=== PATIENT | female | born 1995 | race Caucasian/White ===

== ENCOUNTER → 2018-08-13 13:48 | Outpatient (CLI) | payer OTHER, SELFPAY ==
[2018-08-13 15:20] LABS: Absolute Neutrophil Count 3.8 X10^3/uL (2.0-7.7); Basophil# 0.03 X10^3/uL; Basophil% 0.4 % (0-1); Eosinophil# 0.05 X10^3/uL; Eosinophils% 0.7 % (0-5); Hematocrit 37.5 % (37-47); Hemoglobin 12.4 g/dl (12.0-15.0); Lymphocyte % 37.2 % (19-41); Mean Corp Hgb Conc 33.1 g/gl (32-36); Mean Corpuscular Hgb 29.9 pg (27.0-32.0); Mean Corpuscular Volume 90.4 fL (81-99); Mean Platelet Vol. 11.2 fl (6.2-12.0); Monocyte# 0.39 X10^3/uL; Monocyte% 5.8 % (0-10); Neutrophil # 3.75 X10^3/uL (2.7-7.7); Neutrophil % 55.9 % (47-70); Platelet Count 294 K/mm3 (150-450); RBC Distribution Width CV 12.9 % (11.6-14.6); Red Blood Count 4.15 M/mm3 (4.2-5.4); White Blood Count 6.7 K/mm3 (4.4-11.0)
[2018-08-13 15:23] LABS: POSITIVE COUNT NO; POSITIVE DIFFERENTIAL NO; POSITIVE MORPHOLOGY NO
[2018-08-13 15:34] LABS: T3 Total - Triiodothyronine 1.39 ng/mL (0.6-1.81)
[2018-08-13 15:59] LABS: ALB/GLOB Ratio 0.9 RATIO (0.9-2.4); AST(SGOT) 14 U/L (15-37); Alanine Aminotransfer ALT/SGPT 31 U/L (13-56); Albumin, Serum 3.7 g/dL (3.2-5.0); Alkaline Phosphatase 35 U/L (45-117); Anion Gap 9 (5-15); BUN 8 mg/dL (7-18); BUN/Creat Ratio 11.3 RATIO (10-20); CRP 4.71 mg/L (0.0-3.0); Calcium,Total 8.9 mg/dL (8.5-10.1); Chloride 106 mmol/L (98-107); Creatinine, Serum 0.71 mg/dL (0.55-1.02); EST Glomerular Filtration Rate 107 mL/min (>60); Est Glom Filt Rate - Afr Amer 130 mL/min (>60); Globulin 4.1 g/dL (2.2-4.2); Glucose 64 mg/dL (74-106); Potassium 3.8 mmol/L (3.5-5.1); Protein, Total 7.8 g/dL (6.4-8.2); Rheumatoid Factor < 10.0 IU/mL (<15); Sodium Level 141 mmol/L (136-145); T4 Free Direct 1.11 ng/dL (0.76-1.46); Thyroid Stim Hormone (TSH) 1.22 uIU/mL (0.358-3.74)
[2018-08-13 16:00] LABS: Erythrocyte Sedimentation Rate 12 mm/hr (0-20)
[2018-08-15 14:41] LABS: Anti-Centromere B Ab <0.2 AI (0.0-0.9); Anti-Chromatin <0.2 AI (0.0-0.9); Anti-Jo <0.2 AI (0.0-0.9); Anti-Scleroderma-70 AB <0.2 AI (0.0-0.9); Anti-ribosomal P Antibodies <0.2 AI (0.0-0.9); RNP Ab <0.2 AI (0.0-0.9); SJOGREN'S Anti-SS-A test < 0.2 AI (0.0-0.9); SJOGREN'S Anti-SS-B test < 0.2 AI (0.0-0.9); Smith Ab <0.2 AI (0.0-0.9); Smith/RNP Ab <0.2 AI (0.0-0.9)
[2018-08-15 14:45] LABS: Anti-dsDNA Ab 1 IU/mL (0-9)
[2018-08-16 03:08] LABS: Thyroid Peroxidase AB 10 IU/mL (0-34)
[2018-08-17 11:32] LABS: CCP IgG Antibodies 6 units (0-19); Thyroglobulin Antibody < 1.0 IU/mL (0.0-0.9)
== END ==
PROVIDERS: Family Provider Family Medicine; PCP Family Medicine; Visit Provider Family Medicine
DX: M25.50 Pain in unspecified joint (principal); M79.10 Myalgia, unspecified site; R53.83 Other fatigue; E01.0 Iodine-deficiency related diffuse (endemic) goiter
CPT/HCPCS: 36415; 80053; 84439; 84443; 84480; 85025; 85652; 86038; 86140; 86200; 86225; 86235; 86376; 86431; 86800

== ENCOUNTER → 2018-12-10 09:23 | Outpatient (CLI) | payer BC, SELFPAY ==
[2018-12-10 12:47] LABS: Absolute Lymphocyte Count 2.06 X10^3/ul (0.83-4.51); Absolute Neutrophil Count 3.7 X10^3/uL (2.0-7.7); Basophil# 0.01 X10^3/uL; Basophil% 0.2 % (0-1); Eosinophil# 0.19 X10^3/uL; Hematocrit 38.1 % (37-47); Hemoglobin 12.1 g/dl (12.0-15.0); Lymphocyte # 2.06 X10^3/ul (4.0); Lymphocyte % 32.5 % (19-41); Mean Corp Hgb Conc 31.8 g/gl (32-36); Mean Corpuscular Hgb 29.1 pg (27.0-32.0); Mean Corpuscular Volume 91.6 fL (81-99); Mean Platelet Vol. 11.4 fl (6.2-12.0); Monocyte# 0.35 X10^3/uL; Monocyte% 5.5 % (0-10); Neutrophil # 3.71 X10^3/uL (2.7-7.7); Neutrophil % 58.6 % (47-70); Platelet Count 318 K/mm3 (150-450); RBC Distribution Width CV 13.9 % (11.6-14.6); RBC Distribution Width SD 45.8 fl (35.1-43.9); Red Blood Count 4.16 M/mm3 (4.2-5.4); White Blood Count 6.3 K/mm3 (4.4-11.0)
[2018-12-10 13:10] LABS: Free T3 2.7 pg/mL (2.18-3.98); POSITIVE COUNT NO; POSITIVE DIFFERENTIAL NO; POSITIVE MORPHOLOGY NO; T4 Free Direct 1.06 ng/dL (0.76-1.46); Thyroid Stim Hormone (TSH) 1.24 uIU/mL (0.358-3.74)
[2018-12-10 13:47] LABS: HIV - WCH Non-Reactive (Nonreactive)
[2018-12-13 12:27] LABS: Lyme IgG P18 Ab Absent (.); Lyme IgG P23 Ab Absent (.); Lyme IgG P28 Ab Absent (.); Lyme IgG P30 Ab Absent (.); Lyme IgG P39 Ab Absent (.); Lyme IgG P41 Ab Present (.); Lyme IgG P45 Ab Absent (.); Lyme IgG P58 Ab Absent (.); Lyme IgG P66 Ab Absent (.); Lyme IgG P93 Ab Absent (.); Lyme IgM P23 Ab Absent (.); Lyme IgM P39 Ab Absent (.); Lyme IgM P41 Ab Absent (.)
[2018-12-13 12:48] LABS: Lyme IgG WB Interpretation Negative (.); Lyme IgM WB Interpretation Negative (.)
[2018-12-14 03:11] LABS: Rapid Plasmin Reagin (RPR) NONREACTIVE (NONREACTIVE)
== END ==
PROVIDERS: Family Provider Family Medicine; PCP Family Medicine; Visit Provider Family Medicine
DX: E01.0 Iodine-deficiency related diffuse (endemic) goiter (principal); M06.4 Inflammatory polyarthropathy; Z51.81 Encounter for therapeutic drug level monitoring; Z20.2 Contact with and (suspected) exposure to infections with a predominantly sexual mode of transmission
CPT/HCPCS: 36415; 84439; 84443; 84481; 85025; 86140; 86592; 86617; 86703

== ENCOUNTER → 2022-05-29 | Outpatient (CLI) | payer BC, SELFPAY ==
[2022-05-29 15:50] LABS: Bacteria 0 SEEN /hpf (None Seen); Mucous, Urine 0 SEEN /hpf (<or=2+)
[2022-05-29 15:56] LABS: Color, Urine Yellow (Yellow); Glucose, Dipstick Normal (Normal); Ketone-Dipstick Negative (Negative); Leukocyte Esterase-Dipstick Negative /ul (Negative); Nitrite-Dipstick Negative (Negative); Occult Blood-Urine 25 /ul (Negative); Protein-Dipstick Negative (Negative); Specific Gravity, Urine 1.015 (1.002-1.030); Urine Bilirubin Dipstick Negative (Negative); Urine Clarity Clear (Clear); Urine Urobilinogen Normal (Normal)
[2022-05-29 16:25] LABS: Red Blood Cells-Urine 0-5 SEEN /hpf (0-5); Squamous Epithelial Cells - UA 0-5 SEEN /hpf (5-10); White Blood Cells 0-5 SEEN /hpf (0-5); Yeast-Urine RARE /hpf (None Seen)
== END | disposition home or self-care (01) ==
PROVIDERS: PCP Family Medicine; Visit Provider Physician Assistant Medical
DX: N39.0 Urinary tract infection, site not specified (principal)
CPT/HCPCS: 81001; 87086; 87088

== ENCOUNTER 2025-01-18 20:33 | Inpatient (IN) | payer OTHER, SELFPAY ==
[2025-01-18 19:36] VITALS: PULSE 86; O2SAT 95
[2025-01-18 19:37] VITALS: BP 136/83; PULSE 86; RESP 20; TEMP 37.6
[2025-01-18 19:49] VITALS: BMI 40.4
[2025-01-18 20:25] LABS: ROM Internal Control Test YES-OK TO RESULT pt. (Internal QC)
[2025-01-18 20:26] LABS: ROM Patient Test POSITIVE (Negative); Record Kit Lot#, ROM+ K3294
[2025-01-18] MEDS: Lactated Ringers 1,000 ML 50 ML IV (21:00)
[2025-01-18] MEDS: Penicillin G Pot 5,000,000 UNITS in 0.9% Normal Saline (100mL MB+) 100 ML 150 UNITS IV (21:01)
[2025-01-18 21:22] LABS: Absolute Lymphocyte Count 1.73 X10^3/uL (0.83-4.51); Absolute Neutrophil Count 7.6 X10^3/uL (2.0-7.7); Basophil# 0.03 X10^3/uL; Basophil% 0.3 % (0-1); Eosinophil# 0.05 X10^3/uL; Eosinophils% 0.5 % (0-5); Hematocrit 39.2 % (37-47); Lymphocyte # 1.73 X10^3/ul (0.83-4.51); Mean Corp Hgb Conc 33.2 g/dL (32-36); Mean Corpuscular Volume 90.5 fL (81-99); Mean Platelet Vol. 11.4 fl (6.2-12.0); Monocyte# 0.73 X10^3/uL; Monocyte% 7.2 % (0-10); NRBC Flagged by Analyzer 0 % (0-5); Neutrophil # 7.57 X10^3/uL (2.7-7.7); Neutrophil % 74.2 % (47-70); Platelet Count 259 K/mm3 (150-450); RBC Distribution Width CV 15.6 % (11.6-14.6); RBC Distribution Width SD 51.4 fl (35.1-43.9); Red Blood Count 4.33 M/mm3 (4.2-5.4); White Blood Count 10.2 K/mm3 (4.4-11.0)
--- NOTE | 2025-01-18 21:34 | PCM.HP.OB ---
HPI - General General Date of Admission: 01/18/25 HPI Narrative EDI GARCIA, is a 29 F at 35.3 weeks who presents with leaking of fluid. PFSH PFSH Medical History (Updated 01/18/25 @ 22:14 by Imani Restrepo CNM) Superficial varicosities Depression Migraines Rheumatoid arthritis Chronic headaches Home Medications ?Medication ?Instructions ?Recorded ?Last Taken ?Type duloxetine 20 mg capsule,delayed ea PO 05/29/22 Unknown History release Held on 01/18/25. Instructions: pt stopped taking with hydroxychloroquine 200 mg tablet 200 mg PO QHS 05/29/22 01/17/25 21:00 History prednisone 5 mg tablet 5 mg PO PRN PRN rheumatoid 05/29/22 Unknown History arthritis sulfasalazine 500 mg tablet 1 g PO QHS 05/29/22 01/17/25 21:00 History aspirin 81 mg capsule 81 mg PO QHS 01/18/25 01/17/25 21:00 History vit no.95-ferrous 1 tab PO QHS 01/18/25 01/17/25 21:00 History fumarate 28 mg-folic acid 800 mcg tablet () Allergy/AdvReac Type Severity Reaction Status Date / Time No Known Allergies Allergy Verified 01/18/25 19:41 Surgical History (Updated 01/18/25 @ 21:36 by Marta Galan) History of placement of ear tubes History of tonsillectomy Social History Smoking Status: Never smoker History Elective abortions Hx Para 0 Spontaneous abortions Hx # Term Pregnancies Ectopic pregnancies Hx # Pregnancies Multiple births # of living children NST FHR Rate Baby A Baseline: 140 Variability:: Moderate Accelerations:: 15 x 15 Decelerations:: None NST Reactive:: Yes FHR Category:: Category I Uterine Activity:: TOCO reading every 2-3 minutes ROS Eyes Eyes: Denies blurry vision, change in vision or spots in vision ENT HEENT: Denies dizziness or headache(s) Cardiovascular Cardiovascular: Denies abdominal pain, chest pain or dyspnea Respiratory/Chest Respiratory/Chest: Denies cough, dyspnea, shortness of breath at rest or shortness of breath with exertion Gastrointestinal Gastrointestinal: Denies abdominal pain, diarrhea or vomiting Genitourinary Genitourinary: Denies change in urinary stream, difficulty urinating or dysuria Musculoskeletal Musculoskeletal: Reports none Integumentary Integumentary: Denies rash Neurologic Neurologic: Denies dizziness, headache(s), memory loss or weakness Psychiatric Psychiatric: Reports none Vital Signs Vital Signs Vital Signs: 01/18/25 19:36 01/18/25 19:36 01/18/25 19:37 Temperature Temperature Source Pulse Rate 86 Respiratory Rate Blood Pressure 136/83 H BP Systolic 136 BP Diastolic 83 Pulse Ox 95 01/18/25 19:37 01/18/25 19:37 01/18/25 19:37 Temperature Temperature Source Temporal Pulse Rate 86 Respiratory Rate 20 H Blood Pressure BP Systolic BP Diastolic Pulse Ox 01/18/25 19:37 Temperature 99.6 F H Temperature Source Pulse Rate Respiratory Rate Blood Pressure BP Systolic BP Diastolic Pulse Ox Weight Weight: 206 lb 12.8 oz Body Mass Index (BMI) 40.4 Physical Exam Const alert, oriented x3 and no apparent distress General Appearance: cooperative Orientation / Consciousness: awake Exam Limitations: no limitations HEENT normocephalic Head and Scalp: normal to inspection Eyes General Eye: normal appearance of both eyes Neck full ROM and no lymphadenopathy Lymph Lymphatic: no lymphadenopathy noted Chest inspection of chest normal Resp normal respiratory effort, normal air movement and clear to auscultation bilaterally Effort and Inspection: able to speak in complete sentences and symmetric chest movement Cardio regular rate and regular rhythm GI normal to inspection, nondistended, normoactive bowel sounds Manual OB Exam: presentation cephalic Back/Spine normal ROM Extremity full ROM and no calf tenderness Skin no rashes or lesions noted General Skin Exam: no breakdown Neuro oriented x3 and CN's II-XII intact bilaterally Psych mental status grossly normal and thought process normal Labs Labs Labs: Blood Type A POSITIVE Antibody Screen NEGATIVE Hct 39.2 % (37-47) Hgb 13.0 g/dL (12.0-15.0) Syphilis Total Ab Nonreactive (Nonreactive) Hep Bs Antigen Negative (Negative) HIV 1&2 Antibody Non-Reactive (Nonreactive) Assessment & Plan (1) Rheumatoid arthritis: (2) 35 weeks gestation of : (3) Premature rupture of membranes: (4) History of depression: (5) Obesity affecting : (6) GBS screening not performed: PLAN: Plan ROM plus- POSITIVE Admit to L&D Routine labs CE /-1 Give Celestone 12 mg IM x1 now Start PCN 5 million units IV now and run PCN 3 million units IV every 4 hours until delivery Epidural when indicated Loss Prevention Auditor notified of admission and plan of care Dr. Beaver notified of admission and plan of care and is collaborating physician
[2025-01-18] MEDS: Betamethasone/Betamethasone 30 MG/5 ML Vial 12 MG IM (21:47)
[2025-01-18 21:56] VITALS: PULSE 73; O2SAT 96
[2025-01-18 21:57] VITALS: BP 146/90; PULSE 80; RESP 18; TEMP 36.6
[2025-01-18 22:05] LABS: Syphilis Antibodies Nonreactive (Nonreactive)
[2025-01-18 22:34] LABS: Uric Acid 4.1 mg/dL (2.6-6.0)
[2025-01-18 22:58] LABS: AST(SGOT) 25 U/L (<=31); Alanine Aminotransfer ALT/SGPT 13 U/L (<=34); Creatinine, Serum 0.45 mg/dL (0.70-1.20); EST Glomerular Filtration Rate 132 (>60); Estimated Creatinine Clearance 187.06 ml/min (50-250)
[2025-01-18] MEDS: Oxytocin 10 UNITS/ML Vial IM (23:42)
[2025-01-18] MEDS: Oxytocin 15 Units/NS 250ml 15 UNITS/250 ML IV.SOLN 83 UNITS IV (23:47)
[2025-01-19] VITALS (15 sets, daily range): BP systolic 95–146; BP diastolic 51–92; PULSE 73–115; RESP 16–22; TEMP 36.1–37.3; O2SAT 95–100
[2025-01-19] MEDS: HYDROmorphone 0.5 MG/0.5 ML SYRINGE IV (00:09)
--- NOTE | 2025-01-19 00:28 | EX.PCM.OBVAG ---
Assessment & Plan (1) (spontaneous vaginal delivery): (2) Avulsion of umbilical cord: (3) Retained placenta or membranes: (4) 35 weeks gestation of : (5) Rheumatoid arthritis: (6) Premature rupture of membranes: (7) History of depression: Vaginal Delivery Maternal Presentation Maternal Presentation: Other ( at 35.6 weeks gestation with PPROM) Vaginal Delivery Information Procedure Performed: Spontaneous Vaginal Delivery Pre-Procedure Diagnosis: PPROM, Spontaneous onset of labor Post-Procedure Diagnosis: , Live male infant Type of anesthesia: None Estimated Blood Loss: 250 Time of Delivery: 23:39 Findings Description of procedure: Patient quickly progressed to complete dilation. [place] Weapon System Operator and RT to room for delivery. With good maternal effort, head delivered followed by anterior shoulder and remainder of infant body without any force, delay, or traction. Loose nuchal cord reduced easily. Vigorous male was delivered atraumatically and placed on maternal abdomen. Pitocin IM & IV started for active management of the third stage of labor. 3 vessel cord clamped and cut after minimal delay and infant placed under warmer by nursing. Short and thin cord noted. I placed minimal pressure on cord to assess if placenta was delivering and the cord avulsed. Manually attempted to feel for placenta which was still inside uterus. Several large clots removed. At this time had nursing call Dr. Beaver to come for evaluation. skin to skin with patient. See operative/procedure note. Presentation: Vertex Amniotic Membrane Rupture Type: Spontaneous Amniotic Fluid Description: Clear and Bloody Placental Delivery Description: Retained Placenta Disposition: Sent to Pathology Specimen collected: No Cord Vessel Description: 3 Vessels Cord Entanglement: Around neck x 1, loose Nuchal Cord Compression: Without compression A Gender: Male (1 minute): 8 (5 minute): 9 Delayed Cord Clamping: Yes Playground Equipment Erector lace inspector: No Post Vaginal Deli Medications given after delivery: IV Pitocin and IM Pitocin Episiotomy Description: None Laceration: None Complication Complications: No
[2025-01-19] MEDS: Cefazolin 2 GM in Syringe IV (00:55)
[2025-01-19] MEDS: Methylergonovine 0.2 MG/ML Ampul IM (02:43)
--- NOTE | 2025-01-19 02:43 | PLAC_PTH ---
PATIENT: EDI GARCIA LOC: [facility] U#:[id number] AGE/SX: 29/F ROOM: WP007 RE01/18/[address]: Imani Restrepo CNM : 1995 BED: 1 DIS: 01/19/2025 SPEC #: [id number] RECD: 01/19/25 04:26 STATUS: ROBIN MAURA #: [id number] MOUSTAPHA: 01/19/25 02:[address]: Tiffany Beaver DEPT: SURGICAL PATHOLOGY RECD BY: Keron Alfaro ENTERED: 01/20/25 08:21 SP TYPE: PLACENTA OTHR DR: MARK Vanessa Dr., DO Tissues: A - Placenta, NOS Procedures: Surgery Specimen Level V HEADER OPERATION: Vaginal delivery PRE-OP DIAGNOSIS: TISSUE SUBMITTED: A- Placenta MICROSCOPIC DIAGNOSIS A. Placenta, , spontaneous vaginal delivery: * 3rd trimester chen placenta, fragmented (358 grams). * 3 vessel umbilical cord without inflammation. * Chorioamnionic membranes with focal edema of the amnion, without inflammation. MICROSCOPIC DESCRIPTION Slides are reviewed. GROSS DESCRIPTION A. Received in formalin in a container labeled with the patient's name, date of , and with no further designation is a previously disrupted chen placenta received in multiple fragments measuring 17.5 x 17.5 x 5.0 cm in aggregate. The placental fragments weigh 358 g together. The detached white-avila umbilical cord exhibits 3 vessels and is 37.0 cm in length by 1.4 cm in diameter. A minimal amount of avila-pink and partially stripped membranes are identified. The attachment point of the membranes and umbilical cord is unable to be determined. A small portion of intact surface is discovered with pale mendez, prominent vasculature. The opposing maternal surface is previously disrupted with a moderate amount of easily removed blood clot material. Due to the disrupted nature, completeness is unable to be determined. Serial sections reveal pale brown-pink, spongy surfaces. Petroleum Plant Operator sections:A1. Umbilical cord and membrane rollA2. Full-thickness section at intact portion of surfaceA3. Full-thickness section at intact portion of surface with pale surfacesA4. Sample disrupted fragments [facility] 01-20-2025 CPT:11536
[2025-01-19] MEDS: Carboprost Tromethamine 250 MCG/ML Ampul IM (02:45)
[2025-01-19] MEDS: miSOPROStol 200 MCG Tablet 1000 MCG RC (02:50)
--- NOTE | 2025-01-19 03:09 | OP.PCM_ITS ---
Problems Associated Problem List Diagnoses (1) Retained placenta or membranes: Operative Report (Standard) Operative Information Date of Procedure: 01/19/25 Pre-Operative Diagnosis: Retained placenta Post-Operative Diagnosis: As above Surgery/Procedure Performed: Exam under anesthesia, manual extraction of retained placenta, curettage under ultrasound guidance, repair of first degree vaginal laceration coding analyst: Yes Pin Game Machine Inspector: Chasidy Corona Tasks completed by email marketing assistant: Other (manual extraction of placenta, ultrasound) Type of Anesthesia: MAC Procedure Start Time: 00:55 Procedure Stop Time: 02:40 Select all DRAINS/GRAFTS/IMPLANTS that apply: None Estimated Blood Loss: 1200 mL Fluids Replaced: See anesthesia record Specimen collected: Yes Description of specimen(s) removed: Placenta Description of surgery: I was called by Imani Restrepo CNM as the cord was avulsed after delivery, and the placenta was retained for about 30 minutes. I presented at bedside to examine the patient. The patient requested to try to avoid the OR if possible, and was agreeable to IV pain medication for pain control. After IV Diluadid x 1 was given, the uterus was explored three times with removal of pieces of placenta. Discussed with patient r/b/a of exam under anesthesia, removal of retained placenta, D&C, repair of lacerations under MAC. Consent obtained and patient desired to proceed. Once in the OR, MAC anesthesia was induced and adequate. She was prepped and draped in the dorsal lithotomy position using yellow fin stirrups. Imani Restrepo CNM was performing a transabdominal ultrasound for guidance. An exam was performed and manual removal of pieces of the placenta was performed. A Banjo curettage was used for several passes under ultrasound guidance with removal of small pieces of tissue. With the ultrasound and on exam, there was still placenta remaining in the left cornua of the uterus. A size 12 suction curettage was used for two passes with removal of small amounts of tissue under ultrasound guidance. An exam was then performed again, and small pieces of the placenta were removed on manual extraction. The placenta was not delivering easily. At this point Dr. Chasidy Corona MD was called in for assistance. Dr. Corona performed additional manual removal of small pieces of placental tissue. I then was able to manually extract the placenta. The uterus was explored x 1 and was noted to be clear of any remaining tissue on exam. Bleeding was brisk once the placenta was delivered. Pitocin IV, Methergine, Hemabate, and Cytotec were given. The uterus was then firm and bleeding scant. 3-0 Vicryl was then used to repair the first degree vaginal laceration in usual fashion. A vaginal sweep was performed. Instrument, sponge and needle counts were correct and the patient was taken to the recovery room in stable condition. Surgical Findings: Retained placenta First degree vaginal laceration Complications Complications: No Admit VTE Documentation VTE Present on Admission: No VTE Mechan Device Prophylaxis: SCD's
[2025-01-19] MEDS: Gentamicin IV 230 MG in Dextrose 5%-Water (50mL Bag) 50 ML 100 MG IVPB (05:21)
[2025-01-19] MEDS: Clindamycin 900 MG/50 ML BAG 75 MG IV (06:04)
[2025-01-19 06:08] LABS: Bedside Glucose 64 mg/dL (74-106)
[2025-01-19] MEDS: Acetaminophen 500 MG Tablet 1000 MG PO (07:21)
[2025-01-19 08:09] LABS: Hematocrit 30.6 % (37-47); Hemoglobin 10.1 g/dL (12.0-15.0); Mean Corpuscular Hgb 30.1 pg (27.0-32.0); Mean Corpuscular Volume 91.3 fL (81-99); Mean Platelet Vol. 11.4 fl (6.2-12.0); Platelet Count 248 K/mm3 (150-450); RBC Distribution Width CV 15.6 % (11.6-14.6); RBC Distribution Width SD 51.6 fl (35.1-43.9); Red Blood Count 3.35 M/mm3 (4.2-5.4); White Blood Count 20.7 K/mm3 (4.4-11.0)
--- NOTE | 2025-01-19 08:52 | PCM.PN.CNM ---
Subjective Subjective Patient seen at bedside. Ambulating and voiding without difficulty. Denies any pain at this time. remains at bedside. Lochia decreasing. Objective Data Objective Data Vital Signs: Vital Signs Temp Pulse Resp BP Pulse Ox O2 Del Method 97.7 F L 99 16 115/69 96 Room Air 01/19/25 07:46 01/19/25 07:46 01/19/25 07:46 01/19/25 07:46 01/19/25 07:46 01/19/25 07:46 Oxygen Delivery Method Room Air Weight: 206 lb 12.8 oz Body Mass Index (BMI) 40.4 Intake & Output: Intake and Output for Last 24 Hours 01/17/25 01/18/25 01/19/25 23:59 23:59 23:59 Intake Total 242.5 / 242.5 1132.5 / 1132.5 Output Total 250 / 250 1600 / 1600 Balance -7.5 / -7.5 -467.5 / -467.5 Lab / Micro Data Attestation: I reviewed the patient's lab results. 01/19/25 07:53 01/18/25 21:00 Labs: Laboratory Results - last 24 hr 01/18/25 19:58: Vag Amniotic Fld Detect POSITIVE H 01/18/25 21:00: WBC 10.2, RBC 4.33, Hgb 13.0, Hct 39.2, MCV 90.5, MCH 30.0, MCHC 33.2, RDW Std Deviation 51.4 H, RDW Coeff of Rikki 15.6 H, Plt Count 259, MPV 11.4, Immature Gran % (Auto) 0.800, Neut % (Auto) 74.2 H, Lymph % (Auto) 17.0 L, [place] % (Auto) 7.2, Eos % (Auto) 0.5, Baso % (Auto) 0.3, Absolute Neuts (auto) 7.6, Absolute Lymphs (auto) 1.73, Nucleated RBC % 0, Creatinine 0.45 L, Estim Creat Clear Calc 187.06, Est GFR (MDRD) Non-Af 132, Uric Acid 4.1, AST 25, ALT 13, Syphilis Total Ab Nonreactive, Blood Type A POSITIVE, Antibody Screen NEGATIVE 01/19/25 05:15: POC Glucose 64 L 01/19/25 07:53: WBC 20.7 H, RBC 3.35 L, Hgb 10.1 L, Hct 30.6 L, MCV 91.3, MCH 30.1, MCHC 33.0, RDW Std Deviation 51.6 H, RDW Coeff of Rikki 15.6 H, Plt Count 248, MPV 11.4 ROS Eyes Eyes: Denies blurry vision, change in vision or spots in vision ENT HEENT: Denies dizziness or headache(s) Cardiovascular Cardiovascular: Denies abdominal pain, chest pain or dyspnea Respiratory/Chest Respiratory/Chest: Denies cough, dyspnea, shortness of breath at rest or shortness of breath with exertion Gastrointestinal Gastrointestinal: Denies abdominal pain, diarrhea or vomiting Genitourinary Genitourinary: Denies change in urinary stream, difficulty urinating or dysuria Musculoskeletal Musculoskeletal: Reports none Integumentary Integumentary: Denies rash Neurologic Neurologic: Denies dizziness, headache(s), memory loss or weakness Physical Exam Const alert and no apparent distress General Appearance: cooperative and comfortable Exam Limitations: no limitations HEENT normocephalic Eyes General Eye: normal appearance of both eyes Neck full ROM General: normal visual inspection Chest Chest: symmetrical chest wall rise Resp normal respiratory effort and normal air movement Effort and Inspection: symmetric chest movement Auscultation: clear to auscultation bilaterally Cardio regular rate and regular rhythm GI normal to inspection, nondistended, normoactive bowel sounds Back/Spine normal ROM Extremity full ROM and no calf tenderness General Extremity: normal exam except as noted Skin no rashes or lesions noted Neuro oriented x3 Speech: speech normal Psych mental status grossly normal Thought Process: normal thought process Assessment & Plan (1) Retained placenta or membranes: (2) Avulsion of umbilical cord: (3) (spontaneous vaginal delivery): (4) History of depression: (5) 35 weeks gestation of : PLAN: Plan PPD 1 S/P manual / D&C for retained placenta Pain controlled S/P Clindamycin, Ancef, and Gentamicin IV support
[2025-01-19] MEDS: Ibuprofen 600 MG Tablet PO ×2 (11:13→19:12)
[2025-01-19] MEDS: 0.9% Saline Lock 10 ML Syringe IV (17:07)
--- NOTE | 2025-01-19 20:37 | PCM.DC.SUM ---
Providers Date of Admission: 01/18/25 Primary Care Physician: Dr. Tegan Patterson DO Reason For Visit: VAGINAL DELIVERY Diagnosis Discharge Diagnosis (1) Retained placenta or membranes: Status: Acute Code(s): O73.1 - Retained portions of placenta and membranes, without hemorrhage (2) Avulsion of umbilical cord: Status: Acute Code(s): P02.69 - [place] affected by other conditions of umbilical cord (3) (spontaneous vaginal delivery): Status: Acute Code(s): O80 - Encounter for full-term uncomplicated delivery (4) History of depression: Status: Acute Code(s): Z86.59 - Personal history of other mental and behavioral disorders (5) 35 weeks gestation of : Status: Acute Code(s): Z3A.35 - 35 weeks gestation of Plan PPD 1 S/P manual / D&C for retained placenta Pain controlled S/P Clindamycin, Ancef, and Gentamicin IV support Medications at Discharge Home Medications duloxetine 20 mg capsule,delayed release ea PO 05/29/22 Held on 01/18/25. Instructions: pt stopped taking with hydroxychloroquine 200 mg tablet 200 mg PO QHS 05/29/22 prednisone 5 mg tablet 5 mg PO PRN PRN rheumatoid arthritis 05/29/22 sulfasalazine 500 mg tablet 1 g PO QHS 05/29/22 vit no.95-ferrous fumarate 28 mg-folic acid 800 mcg tablet () 1 tab PO QHS 01/18/25 acetaminophen 500 mg tablet 1,000 mg (2 x 500 mg) PO Q6H PRN PRN Pain 1-10 Or Fever #0 tabs 01/19/25 ibuprofen 600 mg tablet 600 mg PO Q6H PRN PRN Pain Score 1-10 #0 tabs 01/19/25 Hospital Course Operations None Procedures None Summary of Care Provided Minutes Spent on Discharge: 15 Hospital Course: Patient had vaginal delivery. Hospital course was uneventful. Physical Exam Narrative Baby being transported to [facility] for blood sugar regulation. Patient and asking to be discharged to go with baby. Patient denies any pain. Is independently ambulating, and has showered today. Bleeding is decreasing and denies passing any clots. Denies pain. Patient almost 24 hours post . Const alert and oriented x3 General Appearance: Negative for in distress HEENT normocephalic Eyes General Eye: normal appearance of both eyes Neck General: normal visual inspection Chest Chest: symmetrical chest wall rise Resp normal respiratory effort and normal air movement Effort and Inspection: symmetric chest movement; Negative for tachypneic Auscultation: clear to auscultation bilaterally Cardio regular rate and regular rhythm Peripheral Pulses: pulses 2+ throughout GI normal to inspection, nondistended, normoactive bowel sounds Narrative: Ice to perineum OB / External & Speculum: vaginal bleeding and other Lochia decreasing Uterus Palpation: uterus fundus firm (Below U) Extremity normal to inspection, full ROM and normal capillary refill Skin no rashes or lesions noted Neuro oriented x3, CN's II-XII intact bilaterally and gait normal Psych mental status grossly normal, thought process normal and activity/motor behavior normal Weight / BMI Weight Weight: 206 lb 12.8 oz Body Mass Index (BMI) 40.4 ABG / Lab / Microbiology Data 01/19/25 07:53 01/18/25 21:00 Laboratory: Laboratory Results - last 24 hr 01/18/25 21:00: WBC 10.2, RBC 4.33, Hgb 13.0, Hct 39.2, MCV 90.5, MCH 30.0, MCHC 33.2, RDW Std Deviation 51.4 H, RDW Coeff of Rikki 15.6 H, Plt Count 259, MPV 11.4, Immature Gran % (Auto) 0.800, Neut % (Auto) 74.2 H, Lymph % (Auto) 17.0 L, [place] % (Auto) 7.2, Eos % (Auto) 0.5, Baso % (Auto) 0.3, Absolute Neuts (auto) 7.6, Absolute Lymphs (auto) 1.73, Nucleated RBC % 0, Creatinine 0.45 L, Estim Creat Clear Calc 187.06, Est GFR (MDRD) Non-Af 132, Uric Acid 4.1, AST 25, ALT 13, Syphilis Total Ab Nonreactive, Blood Type A POSITIVE, Antibody Screen NEGATIVE 01/19/25 05:15: POC Glucose 64 L 01/19/25 07:53: WBC 20.7 H, RBC 3.35 L, Hgb 10.1 L, Hct 30.6 L, MCV 91.3, MCH 30.1, MCHC 33.0, RDW Std Deviation 51.6 H, RDW Coeff of Rikki 15.6 H, Plt Count 248, MPV 11.4 D/C Instructions Discharge Diet: No restrictions Discharge Activity: Return to Normal Activity, No Restrictions, May Drive, May Shower and May Take a Tub Bath (Warm water only. No bath salts, soaps, bubbles) May resume sexual activity in: 6-8 weeks Weight Bearing Status: Weight bearing as tolerated Call your doctor if you observe: Fever of 101 or Higher, Inability to urinate, Using more than 1 pad per hour, Shortness of breath, Dizziness, Chest pain, Calf discomfort and Uncontrolled pain DC O2, CPAP, BIPAP Needs Home O2 Discharge instructions: No Please Follow Up With: [facility] Aravind SILVA When: Follow up this week in office for check up Meaningful Use Info Meaningful Use Meaningful Use Diagnoses (Choose all that apply): None applicable Ischemic Stroke Statin Dosing Therapy Reference: STATIN DOSE THERAPY REFERENCE: * Patients > 75 years receive moderate or high dose statin therapy. * Patients 75 years or YOUNGER should receive HIGH intensity statin dose unless contraindicated. You will be required to document reason for non-treatment if statin daily dose does not meet guidelines. HIGH DOSE STATIN THERAPY DAILY Atorvastatin > than or = to 40 mg Rosuvastatin > than or = to 20 mg Amlodipine + Atorvastatin > than or = to 2.5/40 mg Ezetimibe + Simvastatin 10/80 mg Simvastatin 80mg Discharge Plan Admission Admit Date/Time: 01/18/25 20:33 Primary Reason for Your Visit: Labor and Delivery Attending Provider: Imani Restrepo Primary Care Provider: Tegan Patterson Discharge Orders/Prescriptions Prescriptions: New acetaminophen 500 mg Tablet 1,000 mg PO Q6H PRN PRN (Reason: Pain 1-10 Or Fever) Qty: 0 0RF ibuprofen 600 mg Tablet 600 mg PO Q6H PRN PRN (Reason: Pain Score 1-10) Qty: 0 0RF Continued sulfasalazine 500 mg tablet 1 g PO QHS hydroxychloroquine 200 mg tablet 200 mg PO QHS prednisone 5 mg tablet 5 mg PO PRN PRN (Reason: rheumatoid arthritis) PNV cmb#95-ferrous fumarate-FA [] 28 mg iron- 800 mcg tablet 1 tab PO QHS Discontinued aspirin 81 mg capsule 81 mg PO QHS No Action duloxetine 20 mg capsule,delayed release(DR/EC) PO Patient Comments: TAKE 1 CAPSULE BY MOUTH ONCE DAILY Referrals / Follow Up: Tegan Patterson DO [Primary Care Provider] - Imani Restrepo CNM [Med Staff - [facility] Practice Prof] - Disposition Disposition (needs filled in before D/C Order can be placed): Home, Self Care
--- NOTE | 2025-01-19 22:56 | NURSING ---
Noreen Restrepo CNM in room evaluating patient for discharge at approx 2020 due to delivery less than 24 hours ago. This RN relayed to provider vitals and bleeding WNL.
== END 2025-01-19 22:10 | disposition home or self-care (01) | DRG 796 ==
LOC: WPOUT 20:42 → WP 20:42
PROVIDERS: Obstetrics & Gynecology; Admitting Provider Advanced Practice Midwife; PCP Family Medicine; Visit Provider Advanced Practice Midwife
DX: O42.913 Preterm premature rupture of membranes, unspecified as to length of time between rupture and onset of labor, third trimester (principal); Z37.0 Single live birth; O60.14X0 Preterm labor third trimester with preterm delivery third trimester, not applicable or unspecified; O72.0 Third-stage hemorrhage; F32.A Depression, unspecified; O99.214 Obesity complicating childbirth; O69.81X0 Labor and delivery complicated by cord around neck, without compression, not applicable or unspecified; O70.0 First degree perineal laceration during delivery; O73.0 Retained placenta without hemorrhage; O69.89X0 Labor and delivery complicated by other cord complications, not applicable or unspecified; O99.344 Other mental disorders complicating childbirth; Z3A.35 35 weeks gestation of pregnancy; Z79.899 Other long term (current) drug therapy
CPT/HCPCS: 36415; 59025; 59050; 82565; 82962; 84112; 84450; 84460; 84550; 85025; 85027; 86780; 86850; 86900; 86901; 88307; 99221; A4216; G0378; J0702